=== PATIENT | male | born 2000 | race African-American/Black ===

== ENCOUNTER 2022-11-26 10:24 | Emergency (ER) | payer MEDICAID ==
[~2022-11-26] VITALS: Ht 188 cm; Wt 62.0 kg
[~2022-11-26 10:24] MED LIST: FLONASE
[2022-11-26 10:27] VITALS: BP 132/74; O2SAT 100
[2022-11-26 11:09] VITALS: PULSE 64; RESP 20
== END 2022-11-26 11:32 | disposition home or self-care (01) ==
LOC: ER 10:24
DX: R45.1 Restlessness and agitation (principal); F12.10 Cannabis abuse, uncomplicated
CPT/HCPCS: 99283

== ENCOUNTER 2022-12-17 11:00 | Emergency (ER) | payer MEDICAID ==
[~2022-12-17] VITALS: Ht 188 cm; Wt 83.0 kg
[2022-12-17 11:01] VITALS: BP 120/88; PULSE 86; RESP 16; TEMP 98.4; O2SAT 99
== END 2022-12-17 12:41 | disposition home or self-care (01) ==
LOC: ER 11:08
DX: T42.4X2A Poisoning by benzodiazepines, intentional self-harm, initial encounter (principal); R45.851 Suicidal ideations; J45.909 Unspecified asthma, uncomplicated; F12.10 Cannabis abuse, uncomplicated; X58.XXXA Exposure to other specified factors, initial encounter
CPT/HCPCS: 99283